=== PATIENT | male | born 1965 | race Caucasian/White ===

== ENCOUNTER 2016-07-24 14:58 | Emergency (ER) | payer MEDICARE, BC ==
[~2016-07-24] VITALS: Ht 170.2 cm; Wt 61.4 kg
[~2016-07-24 14:58] MED LIST: BUSPAR10 M1 PO; CEPHALEXIN500 MG PO; CIPROFLOXACN500 MG PO; DEPO-MEDROL80 MG/ML IM; LISINOPRIL10 MG PO; LORTAB 10 PO; LORTAB 5 OR; MEDDOSEPAK PO; METRONIDAZOLE500 MG PO; MS CONTIN30 MG PO; SOMA350 MG OR; SOMA350 MG PO
[2016-07-24] MEDS ORDERED: MS CONTIN30 MG PO (15:06)
[2016-07-24 16:09] LABS: HEMATOCRIT 42.9 % (39.0-50.0); IMMATURE GRANULOCYTES 0.2 % (0.0-1.0); NEUT# 2.29 thou/uL (1.82-7.42); RED BLOOD COUNT 4.29 mill/uL (4.70-6.10); RED CELL DISTRI WIDTH 11.9 % (11.5-15.5)
[2016-07-24 16:18] LABS: ALBUMIN 4.2 g/dL (3.2-5.0); ALKALINE PHOSPHATASE 64 u/l (38-126); ANION GAP 15 (6-22 (CALC)); BILIRUBIN, TOTAL 0.4 mg/dL (0.0-1.4); BUN 8 mg/dL (9-20); BUN/CREATININE RATIO 13 (12-20 (CALC)); CALCIUM 9.4 mg/dL (8.4-10.2); CARBON DIOXIDE 23 mmol/l (22-30); CHLORIDE 106 mmol/l (95-108); CREATININE 0.7 mg/dL (0.7-1.3); GFR > 60 ML/MIN (>=60 (CALC)); GFR FOR AFR.AMER. > 60 ML/MIN (>=60 (CALC)); GLUCOSE 97 mg/dL (75-110); LIPASE 38 u/l (23-300); POTASSIUM 4.3 mmol/l (3.5-5.1); SGOT/AST 20 u/l (17-59); SGPT/ALT 31 u/l (21-72); SODIUM 140 mmol/l (137-146); TOTAL PROTEIN 7.4 g/dL (6.3-8.2)
[2016-07-24 16:48] LABS: URINE BILIRUBIN - DIPSTICK NEGATIVE (NEGATIVE); URINE BLOOD DIPSTICK NEGATIVE (NEGATIVE); URINE CLARITY CLEAR; URINE COLOR YELLOW; URINE GLUCOSE - DIPSTICK NEGATIVE (NEGATIVE); URINE KETONE NEGATIVE (NEGATIVE); URINE LEUK ESTERASE NEGATIVE (Negative); URINE NITRITE - DIPSTICK NEGATIVE (Negative); URINE PROTEIN - DIPSTICK NEGATIVE (NEG-TRACE); URINE SPECIFIC GRAVITY 1.015; URINE UROBILINOGEN - DIPSTICK 0.2 E.U./dL (0.2)
[2016-07-24] MEDS ORDERED: IBUPROFEN600 MG PO (23:13)
[2016-07-24 23:15] VITALS: BP 152/89
== END 2016-07-24 23:30 | disposition home or self-care (01) ==
LOC: ED 14:58
PROVIDERS: Emergency Medicine
DX: N43.3 Hydrocele, unspecified (principal); I10 Essential (primary) hypertension; F17.210 Nicotine dependence, cigarettes, uncomplicated

== ENCOUNTER 2021-10-29 22:21 | Emergency (ER) | payer MEDICARE ==
[~2021-10-29] VITALS: Ht 170.2 cm; Wt 69.0 kg
[~2021-10-29 22:21] MED LIST changes: +IBUPROFEN600 MG PO
[2021-10-29 23:42] VITALS: BP 175/115
[2021-10-29 23:44] VITALS: BP 201/110
[2021-10-29 23:46] VITALS: BP 161/105
[2021-10-29] MEDS ORDERED: METOPROL TAR25 MG PO (23:51)
[2021-10-29] MEDS ORDERED: LISINOPRIL2.5 MG PO (23:51)
[2021-10-30] VITALS (7 sets, daily range): BP systolic 142–176; BP diastolic 105–112
[2021-10-30 00:12] LABS: HEMATOCRIT 45.2 % (39.0-50.0); HEMOGLOBIN 15.4 g/dl (14.0-18.0); IMMATURE GRANULOCYTES 0.2 % (0.0-5.0); MEAN CELL VOLUME 98.9 fL CALC (80.0-100.0); MEAN CORPUSCULAR HGB 33.7 pG CALC (26.0-32.0); MEAN CORPUSCULAR HGB CONC 34.1 g/dL CAL (32.0-36.0); NEUT# 7.42 thou/uL (1.82-7.42); RED BLOOD COUNT 4.57 mill/uL (4.70-6.10); RED CELL DISTRI WIDTH 11.5 % (11.5-15.5)
[2021-10-30 00:35] LABS: ALBUMIN 4.5 g/dL (3.2-5.0); ANION GAP 16 (6-22 (CALC)); BUN 15 mg/dL (9-20); BUN/CREATININE RATIO 18 (12-20 (CALC)); CARBON DIOXIDE 26 mmol/l (22-30); CHLORIDE 105 mmol/l (95-108); CREATININE 0.8 mg/dL (0.7-1.3); GFR FOR AFR.AMER. > 60 ML/MIN (>=60 (CALC)); GFR OTHER RACES > 60 ML/MIN (>=60 (CALC)); POTASSIUM 4.2 mmol/l (3.5-5.1); SGOT/AST 25 u/l (17-59); SODIUM 142 mmol/l (137-146); TOTAL PROTEIN 7.8 g/dL (6.3-8.2)
[2021-10-30 00:36] LABS: ALKALINE PHOSPHATASE 68 u/l (38-126); BILIRUBIN, TOTAL 0.7 mg/dL (0.0-1.4)
[2021-10-30] MEDS ORDERED: LISINOPRIL20 M1 PO (01:16)
== END 2021-10-30 01:38 | disposition home or self-care (01) ==
LOC: ED 22:21
PROVIDERS: Family Medicine
DX: I10 Essential (primary) hypertension (principal); F17.210 Nicotine dependence, cigarettes, uncomplicated